=== PATIENT | male | born 1985 | race Caucasian/White ===

== ENCOUNTER 2018-10-11 12:41 | Emergency (ER) | payer OTHER ==
[~2018-10-11] VITALS: Ht 175.3 cm; Wt 62.1 kg
[2018-10-11 12:50] VITALS: BP 143/92
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
--- NOTE | 2018-10-11 13:20 | NUR ---
Patient being evaluated by physician at bedside.
[2018-10-11 14:48] VITALS: BP 141/90
== END 2018-10-11 14:48 | disposition home or self-care (01) ==
LOC: MED 12:41
DX: S46.811A Strain of other muscles, fascia and tendons at shoulder and upper arm level, right arm, initial encounter (principal); Y04.0XXA Assault by unarmed brawl or fight, initial encounter; Y93.89 Activity, other specified; Y92.89 Other specified places as the place of occurrence of the external cause; Y99.8 Other external cause status
CPT/HCPCS: 71045; 99283; Q0092

== ENCOUNTER 2019-06-17 12:51 | Emergency (ER) | payer SELFPAY ==
[~2019-06-17] VITALS: Ht 175.3 cm; Wt 68.0 kg
[2019-06-17 13:14] VITALS: BP 129/87
--- NOTE | 2019-06-17 15:22 | NUR ---
PT TAKEN TO CHAIR Chiqui.
[2019-06-17] MEDS ORDERED: VANCOMYCIN PER PHARMACY MC PRN (15:40)
[2019-06-17] MEDS ORDERED: VANCOMYCIN 1GM/DEXT 5% PREMIX 200 ML IV ONE (15:40)
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
--- NOTE | 2019-06-17 16:02 | NUR ---
PT MOVED TO BED 8.
[2019-06-17] MEDS ORDERED: VANCOMYCIN 1,000 MG VIAL ONE (16:09)
[2019-06-17] MEDS ORDERED: VANCOMYCIN 1,000 MG in DEXTROSE 5% 250 ML IV ONE (16:15)
[2019-06-17 16:24] LABS: BASOPHILS % (AUTO) 0.4 % (0.0-2.0); EOSINOPHILS # (AUTO) 0.1 K/uL (0-0.4); EOSINOPHILS % (AUTO) 1.2 % (0.0-4.0); HEMATOCRIT 45.1 % (36-52); HEMOGLOBIN 15.3 g/dL (12.0-18.0); LYMPHOCYTES # (AUTO) 1.8 K/uL (2.0-11.5); LYMPHOCYTES % (AUTO) 24.5 % (20.5-51.1); MEAN CORPUSCULAR HEMOGLOBIN 31 pg (27-31); MEAN CORPUSCULAR HGB CONC 34 g/dL (33-37); MONOCYTES # (AUTO) 0.9 K/uL (0.8-1.0); MONOCYTES % (AUTO) 12.6 % (1.7-9.3); NEUTROPHILS # (AUTO) 4.5 K/uL (1.8-7.7); NEUTROPHILS % (AUTO) 61.3 % (42.2-75.2); PLATELET COUNT (AUTO) 233 K/uL (140-450); RED BLOOD CELL COUNT(AUTO) 4.96 MIL/uL (4.20-6.10); RED CELL DISTRIBUTION WIDTH 13.1 % (11.6-13.7); WHITE BLOOD COUNT (AUTO) 7.4 K/uL (4.8-10.8)
--- NOTE | 2019-06-17 16:30 | NUR ---
PT SITTING QUIETLY, COMFORTABLY IN BED. VANCOMYCIN STARTED. WILL CONTINUE TO MONITOR.
[2019-06-17 17:45] LABS: ANION GAP 17.7 (8-16); CREATININE 0.8 mg/dL (0.7-1.3); POTASSIUM 3.7 mmol/L (3.5-5.1); TOTAL BILIRUBIN 0.9 mg/dL (0.0-1.0)
[2019-06-17 17:46] LABS: ALBUMIN 3.7 g/dL (3.4-5.0)
[2019-06-17 19:10] VITALS: BP 119/78
--- NOTE | 2019-06-17 19:10 | NUR ---
Patient discharged with v/s stable. Written and verbal after care instructions given and explained. Patient alert, oriented and verbalized understanding of instructions. Ambulatory with steady gait. All questions addressed prior to discharge. ID band removed. Patient advised to follow up with PMD. Rx of Glidden and Bactrim given. Patient educated on indication of medication including possible reaction and side effects. Opportunity to ask questions provided and answered.
== END 2019-06-17 19:10 | disposition home or self-care (01) ==
LOC: MED 12:51
DX: M65.88 Other synovitis and tenosynovitis, other site (principal); Z88.0 Allergy status to penicillin; Z98.890 Other specified postprocedural states
CPT/HCPCS: 36415; 73130; 80053; 83605; 85025; 87040; 96365; 96366; 99284; J3370